=== PATIENT | female | born 1950 | race Native Hawaiian/Other Pacific Islander ===

== ENCOUNTER 2017-01-16 13:35 | Outpatient (CLI) | payer OTHER ==
[~2017-01-16 13:35] MED LIST: AMLO5TAB PO; BENZONATATE200 MG PO; CARV25TA PO; FLUC150T PO; FURO20TA67 PO; LEVAQUIN500 MG OR; LEVOTHROID150 MCG OR; LISI5TAB10 PO; POTA20TA4 PO; PRAVACHOL20 MG PO; SERT50TA PO
== END 2017-01-16 19:11 | disposition home or self-care (01) ==
LOC: LAB 13:35
DX: D64.89 Other specified anemias (principal)
CPT/HCPCS: 85018

== ENCOUNTER 2017-01-28 13:09 | Outpatient (CLI) | payer OTHER | END 2017-01-28 14:15 | disposition home or self-care (01) | LOC: LAB 13:09 | DX: D64.89 Other specified anemias (principal) | CPT/HCPCS: 85014; 85018 ==

== ENCOUNTER 2017-07-24 11:24 | Outpatient (CLI) | payer OTHER | END 2017-07-24 19:08 | disposition home or self-care (01) | LOC: LAB 11:24 | DX: D64.89 Other specified anemias (principal) | CPT/HCPCS: 85018 ==

== ENCOUNTER 2017-08-07 00:39 | Outpatient (CLI) | payer OTHER ==
[2017-08-08] MEDS ORDERED: CALCIUM CITRATE1 TAB PO (01:28)
[2017-08-08] MEDS ORDERED: ALLO300T23 PO (01:30)
[2017-08-08] MEDS ORDERED: LEVO-T125 MCG PO (01:35)
[2017-08-08] MEDS ORDERED: COLCHICINE0.6 MG PO (01:35)
[2017-08-08] MEDS ORDERED: ROSUVASTATIN CAL5 MG PO (01:36)
== END 2017-08-07 00:43 | disposition short-term general hospital (02) ==
LOC: AMB 00:39
DX: R06.02 Shortness of breath (principal)
CPT/HCPCS: A0425; A0427

== ENCOUNTER 2017-08-08 00:06 | Emergency (ER) | payer OTHER ==
[~2017-08-08] VITALS: Ht 170.2 cm; Wt 79.4 kg
[2017-08-08 00:48] LABS: PLATELET COUNT 280 K/uL (152-353)
[2017-08-08 00:59] LABS: POTASSIUM 4.4 mmol/L (3.6-5.2)
[2017-08-08] MEDS ORDERED: CALCIUM CITRATE1 TAB PO (01:28)
[2017-08-08] MEDS ORDERED: ALLO300T23 PO (01:30)
[2017-08-08] MEDS ORDERED: LEVO-T125 MCG PO (01:35)
[2017-08-08] MEDS ORDERED: COLCHICINE0.6 MG PO (01:35)
[2017-08-08] MEDS ORDERED: ROSUVASTATIN CAL5 MG PO (01:36)
[2017-08-08 01:55] VITALS: BP 107/66; TEMP 99.1
== END 2017-08-08 02:15 | disposition home or self-care (01) ==
LOC: ED 00:06
PROC: 0T9B70Z Drainage of Bladder with Drainage Device, Via Natural or Artificial Opening (ICD-10-PCS; principal; 2017-08-08)
DX: I50.9 Heart failure, unspecified (principal); N18.9 Chronic kidney disease, unspecified; J81.1 Chronic pulmonary edema; R00.0 Tachycardia, unspecified
CPT/HCPCS: 36600; 51702; 80053; 82805; 83880; 85027; 96361; 96374; 96376; 99284; J1940; J2270; J2930

== ENCOUNTER 2017-10-06 04:29 | Outpatient (CLI) | payer OTHER ==
[~2017-10-06 04:29] MED LIST changes: +ALLO300T23 PO; +CALCIUM CITRATE1 TAB PO; +COLCHICINE0.6 MG PO; +LEVO-T125 MCG PO; +ROSUVASTATIN CAL5 MG PO
== END 2017-10-06 04:34 | disposition short-term general hospital (02) ==
LOC: AMB 04:29
DX: R06.09 Other forms of dyspnea (principal)
CPT/HCPCS: A0425; A0427

== ENCOUNTER 2017-10-06 04:39 | Inpatient (IN) | payer OTHER ==
[~2017-10-06] VITALS: Ht 170.2 cm; Wt 82.2 kg
[2017-10-06 04:48] VITALS: BP 163/73; TEMP 98.1
[2017-10-06 05:12] LABS: PLATELET COUNT 292 K/uL (152-353)
[2017-10-06 05:40] LABS: PARTIAL THROMBOPLASTIN TIME 26.9 SECONDS (24.5-33.6)
[2017-10-06 05:59] LABS: POTASSIUM 3.6 mmol/L (3.6-5.2)
[2017-10-06 06:35] VITALS: BP 151/65; TEMP 98.1
[2017-10-06 07:35] VITALS: BP 139/63
[2017-10-06 08:12] VITALS: BP 156/66; TEMP 98.1; Ht 170.2 cm; Wt 82.2 kg
[2017-10-06 12:00] VITALS: BP 144/67; TEMP 97.9
[2017-10-07] VITALS: BP 151/62; TEMP 98.2
[2017-10-07 00:54] VITALS: BP 151/62; TEMP 98.2
[2017-10-07 04:00] VITALS: BP 136/76; TEMP 98.4
[2017-10-07 06:13] LABS: PLATELET COUNT 238 K/uL (152-353)
[2017-10-07 06:25] LABS: POTASSIUM 3.5 mmol/L (3.6-5.2)
[2017-10-07 08:00] VITALS: BP 160/70; TEMP 98.4
[2017-10-07 16:00] VITALS: BP 154/61; TEMP 99.5
[2017-10-07 20:00] VITALS: BP 120/63; TEMP 98.7
[2017-10-08] VITALS (7 sets, daily range): BP systolic 115–154; BP diastolic 55–69; TEMP 97.8–98.9
[2017-10-08 06:25] LABS: PLATELET COUNT 223 K/uL (152-353)
[2017-10-08 06:51] LABS: POTASSIUM 3.6 mmol/L (3.6-5.2)
[2017-10-09 04:00] VITALS: BP 155/69; TEMP 97.8
[2017-10-09 06:15] LABS: POTASSIUM 3.2 mmol/L (3.6-5.2)
[2017-10-09 06:35] LABS: PLATELET COUNT 236 K/uL (152-353)
[2017-10-09 08:00] VITALS: BP 138/69; TEMP 98.2
[2017-10-09 16:00] VITALS: BP 170/72; TEMP 97.7
[2017-10-09 20:00] VITALS: BP 164/69; TEMP 98.8
[2017-10-10 00:13] VITALS: BP 161/59; BP 161/67; TEMP 98.3; TEMP 99.5
[2017-10-10 04:00] VITALS: BP 150/63; TEMP 98.1
[2017-10-10 05:05] LABS: PLATELET COUNT 213 K/uL (152-353)
[2017-10-10 05:27] LABS: POTASSIUM 3.6 mmol/L (3.6-5.2)
[2017-10-10 08:00] VITALS: BP 158/64; TEMP 98
[2017-10-10 12:00] VITALS: BP 162/68; TEMP 98
[2017-10-10 16:29] VITALS: BP 160/72
[2017-10-10 20:00] VITALS: BP 119/65; TEMP 99.1
[2017-10-11] VITALS: BP 150/56; TEMP 99.1
[2017-10-11 04:00] VITALS: BP 121/64; TEMP 98.9
[2017-10-11 05:35] LABS: PLATELET COUNT 232 K/uL (152-353)
[2017-10-11 05:47] LABS: POTASSIUM 3.6 mmol/L (3.6-5.2)
[2017-10-11 08:00] VITALS: BP 153/67; TEMP 98.7
[2017-10-11 12:00] VITALS: BP 157/75; TEMP 98.1
[2017-10-11 16:00] VITALS: BP 175/65; TEMP 98.6
[2017-10-11 20:00] VITALS: BP 114/63; TEMP 98.6
[2017-10-12] VITALS: BP 145/57; TEMP 98.2
[2017-10-12 04:00] VITALS: BP 155/58; TEMP 98.1
[2017-10-12 06:30] LABS: PLATELET COUNT 240 K/uL (152-353)
[2017-10-12 06:39] LABS: POTASSIUM 3.8 mmol/L (3.6-5.2); SODIUM 139 mmol/L (136-145)
[2017-10-12 08:00] VITALS: BP 155/68; TEMP 98
[2017-10-12 12:00] VITALS: BP 145/72; TEMP 97.5
[2017-10-12 16:00] VITALS: BP 142/61; TEMP 98.4
[2017-10-12 20:00] VITALS: BP 122/77; TEMP 99.3
[2017-10-13] VITALS: BP 149/60; TEMP 98.7
[2017-10-13 04:00] VITALS: BP 173/72; TEMP 98.2
[2017-10-13 06:43] LABS: PLATELET COUNT 265 K/uL (152-353)
[2017-10-13 08:00] VITALS: BP 164/62; TEMP 98.9
[2017-10-13 09:00] LABS: POTASSIUM 3.4 mmol/L (3.6-5.2)
[2017-10-13 12:00] VITALS: BP 131/61; TEMP 98.5
== END 2017-10-13 14:00 | disposition home or self-care (01) | DRG 193 ==
LOC: ED 04:39 → MED/SURG 06:28
PROVIDERS: Emergency Medicine
PROC: 5A1D70Z Performance of Urinary Filtration, Intermittent, Less than 6 Hours Per Day (ICD-10-PCS; 2017-10-07)
PROC: 5A1D70Z Performance of Urinary Filtration, Intermittent, Less than 6 Hours Per Day (ICD-10-PCS; 2017-10-09)
PROC: 5A1D70Z Performance of Urinary Filtration, Intermittent, Less than 6 Hours Per Day (ICD-10-PCS; 2017-10-10)
PROC: 5A1D70Z Performance of Urinary Filtration, Intermittent, Less than 6 Hours Per Day (ICD-10-PCS; principal; 2017-10-13)
DX: J18.8 Other pneumonia, unspecified organism (principal); N18.6 End stage renal disease; I12.0 Hypertensive chronic kidney disease with stage 5 chronic kidney disease or end stage renal disease; F32.89 Other specified depressive episodes; I25.10 Atherosclerotic heart disease of native coronary artery without angina pectoris; M10.9 Gout, unspecified; E03.8 Other specified hypothyroidism
CPT/HCPCS: 36415; 36600; 80053; 80202; 82550; 82805; 82948; 83880; 84443; 84484; 85027; 85610; 85730; 87015; 87040; 87045; 87077; 87185; 87186; 87205; 87324; 87328; 87329; 87449; 87899; 94640; 94664; 94760; 96367; 96372; 96375; 99283; J0696; J1644; J1940

== ENCOUNTER 2017-12-08 17:51 | Observation (INO) | payer OTHER ==
[~2017-12-08] VITALS: Ht 170.2 cm; Wt 83.6 kg
[2017-12-08 20:22] LABS: PLATELET COUNT 219 K/uL (152-353)
[2017-12-08 20:38] LABS: POTASSIUM 3.9 mmol/L (3.6-5.2)
[2017-12-08 22:13] VITALS: BP 169/79; TEMP 101; Ht 170.2 cm; Wt 83.6 kg
--- NOTE | 2017-12-08 22:37 | NUR ---
12/08/171929 PT SITTING UP IN BED A/O CALL LIGHT WITHIN REACH.PT EATING SOME FOOD HAD BROUGHT IN.PLAN OF CARE DISCUSSED.SALINE LOCK TO UPPER RIGHT FOREARM OBTAINED TOLERATED WELL.DAILYSIS P0RT LOCATED TO RIGHT UPPER CHEST WALL.PT SAID SHE IS TO HAVE DIALYSIS ON ,,AND FRIDAY TOLD HER WE WILL CONTACT ALON GUEVARA FOR DIALYSIS.
[2017-12-09] VITALS: BP 139/59; TEMP 99
[2017-12-09 04:00] VITALS: BP 175/73; TEMP 98.9
[2017-12-09 08:00] VITALS: BP 186/80; TEMP 100.1
[2017-12-09] MEDS ORDERED: CALC667T2 PO (09:41)
[2017-12-09 12:00] VITALS: BP 148/71; TEMP 98.9
== END 2017-12-09 18:00 | disposition home or self-care (01) ==
LOC: MED/SURG 17:51
PROC: 5A1D70Z Performance of Urinary Filtration, Intermittent, Less than 6 Hours Per Day (ICD-10-PCS; principal; 2017-12-09)
DX: E11.22 Type 2 diabetes mellitus with diabetic chronic kidney disease (principal); N18.6 End stage renal disease; J18.8 Other pneumonia, unspecified organism; J11.1 Influenza due to unidentified influenza virus with other respiratory manifestations
CPT/HCPCS: 80053; 85027; 87804; 94640; 94664; 94760; 96367; 96374; 96375; 99220; G0257; G0378; G0379; J0456; J1644; J2543; J2920; J3475

== ENCOUNTER 2018-09-17 02:43 | Emergency (ER) | payer OTHER ==
[~2018-09-17] VITALS: Ht 170.2 cm; Wt 81.6 kg
[~2018-09-17 02:43] MED LIST changes: +CALC667T2 PO
[2018-09-17 03:52] LABS: PLATELET COUNT 252 K/uL (152-353)
[2018-09-17 04:10] LABS: POTASSIUM 4.2 mmol/L (3.6-5.2); SODIUM 140 mmol/L (136-145)
[2018-09-17 06:06] VITALS: TEMP 98.7
[2018-09-17 07:25] VITALS: BP 170/62
== END 2018-09-17 07:15 | disposition home or self-care (01) ==
LOC: ED 02:43
PROVIDERS: Emergency Medicine
DX: R07.89 Other chest pain (principal); N19 Unspecified kidney failure
CPT/HCPCS: 36415; 80053; 82550; 82553; 84484; 85027; 93005; 99283

== ENCOUNTER 2018-09-26 05:51 | Emergency (ER) | payer OTHER ==
[~2018-09-26] VITALS: Ht 170.2 cm; Wt 83.9 kg
[2018-09-26 05:57] VITALS: TEMP 97.7
[2018-09-26 07:30] VITALS: BP 122/51
== END 2018-09-26 07:33 | disposition home or self-care (01) ==
LOC: ED 05:51
DX: J18.9 Pneumonia, unspecified organism (principal); D86.89 Sarcoidosis of other sites
CPT/HCPCS: 36415; 94664; 96365; 96375; 99284; J0696; J2930

== ENCOUNTER 2018-10-03 11:26 | Outpatient (CLI) | payer OTHER | END 2018-10-03 19:29 | disposition home or self-care (01) | LOC: LAB 11:26 | DX: D64.9 Anemia, unspecified (principal) | CPT/HCPCS: 85018 ==

== ENCOUNTER 2018-10-15 10:32 | Outpatient (CLI) | payer OTHER | END 2018-10-15 10:33 | disposition short-term general hospital (02) | LOC: AMB 10:32 | DX: R07.89 Other chest pain (principal) | CPT/HCPCS: A0425; A0427 ==

== ENCOUNTER 2018-10-15 10:38 | Emergency (ER) | payer OTHER ==
[~2018-10-15] VITALS: Ht 170.2 cm; Wt 83.9 kg
[2018-10-15 11:29] LABS: PLATELET COUNT 371 K/uL (152-353)
[2018-10-15 11:35] LABS: POTASSIUM 2.9 mmol/L (3.6-5.2); SODIUM 137 mmol/L (136-145)
[2018-10-15 11:40] LABS: PARTIAL THROMBOPLASTIN TIME 24.4 SECONDS (24.5-33.6)
[2018-10-15 12:30] VITALS: BP 142/59; TEMP 97.7
== END 2018-10-15 14:30 | disposition home or self-care (01) ==
LOC: ED 10:38
PROVIDERS: Emergency Medicine
DX: R07.89 Other chest pain (principal); N18.9 Chronic kidney disease, unspecified; I10 Essential (primary) hypertension; I45.81 Long QT syndrome
CPT/HCPCS: 80053; 83735; 83880; 84443; 84484; 85027; 85379; 85610; 85730; 87502; 93005; 99283

== ENCOUNTER 2018-10-15 15:01 | Outpatient (CLI) | payer OTHER | END 2018-10-15 22:40 | disposition home or self-care (01) | LOC: LAB 15:01 | DX: D64.9 Anemia, unspecified (principal) | CPT/HCPCS: 85014; 85018 ==

== ENCOUNTER 2018-11-30 07:44 | Outpatient (CLI) | payer OTHER | END 2018-11-30 19:19 | disposition home or self-care (01) | LOC: CT 07:44 | DX: D86.9 Sarcoidosis, unspecified (principal) ==

== ENCOUNTER 2019-08-10 12:06 | Emergency (ER) | payer OTHER, MEDICARE ==
[~2019-08-10] VITALS: Ht 170.2 cm; Wt 86.2 kg
[2019-08-10 12:46] LABS: PLATELET COUNT 288 K/uL (152-353)
[2019-08-10 12:59] LABS: POTASSIUM 3.5 mmol/L (3.6-5.2); SODIUM 132 mmol/L (136-145)
[2019-08-10 14:40] VITALS: BP 135/75; TEMP 97.7
== END 2019-08-10 14:40 | disposition home or self-care (01) ==
LOC: ED 12:06
PROVIDERS: Family Medicine
DX: R07.89 Other chest pain (principal); F41.8 Other specified anxiety disorders; R06.4 Hyperventilation
CPT/HCPCS: 36415; 80053; 82550; 84484; 85027; 87651; 93005; 99284; J3490

== ENCOUNTER 2019-08-30 11:45 | Outpatient (CLI) | payer OTHER, MEDICARE | END 2019-08-30 20:15 | disposition home or self-care (01) | LOC: RAD 11:45 | DX: M17.0 Bilateral primary osteoarthritis of knee (principal); M19.041 Primary osteoarthritis, right hand; M19.042 Primary osteoarthritis, left hand ==

== ENCOUNTER 2022-06-04 23:00 | Emergency (ER) | payer OTHER, MEDICARE ==
[~2022-06-04] VITALS: Ht 170.2 cm; Wt 86.2 kg
[2022-06-04 23:58] LABS: POTASSIUM 3.9 mmol/L (3.6-5.2)
[2022-06-05 00:13] LABS: PARTIAL THROMBOPLASTIN TIME 24.7 SECONDS (24.5-33.6)
[2022-06-05 01:17] LABS: PLATELET COUNT 259 K/uL (152-353)
[2022-06-05 02:30] VITALS: BP 148/63; TEMP 98.4
== END 2022-06-05 02:30 | disposition home or self-care (01) ==
LOC: ED 23:22
PROVIDERS: Emergency Medicine
DX: R07.89 Other chest pain (principal); N18.9 Chronic kidney disease, unspecified; Z94.0 Kidney transplant status
CPT/HCPCS: 36415; 80053; 82550; 84484; 85007; 85027; 85610; 85730; 99283

== ENCOUNTER 2023-10-06 14:32 | Outpatient (CLI) | payer OTHER, MEDICARE ==
[~2023-10-06] VITALS: Ht 170.2 cm; Wt 75.3 kg
== END 2023-10-06 19:47 | disposition home or self-care (01) ==
LOC: INF 14:32
PROVIDERS: ATTEND Internal Medicine
DX: N39.0 Urinary tract infection, site not specified (principal)
CPT/HCPCS: 96365; J1335

== ENCOUNTER 2023-10-07 11:23 | Outpatient (CLI) | payer OTHER, MEDICARE ==
[~2023-10-07] VITALS: Ht 170.2 cm; Wt 75.3 kg
== END 2023-10-07 19:30 | disposition home or self-care (01) ==
LOC: INF 11:23
PROVIDERS: ATTEND Internal Medicine
DX: N39.0 Urinary tract infection, site not specified (principal)
CPT/HCPCS: 96365; J1335